=== PATIENT | male | born 1985 | race Caucasian/White ===

== ENCOUNTER 2017-06-26 17:26 | Emergency (ER) | payer OTHER ==
--- NOTE | 2017-06-26 18:20 | ED Physician Documentation ---
PD HPI URI - Stated complaint Stated Complaint: SORE THROAT/COUGH - Chief complaint Chief Complaint: Heent - History obtained from History obtained from: Patient - History of Present Illness Timing - onset: How many days ago (3) Timing duration: Days (3) Timing details: Gradual onset, Still present Associated symptoms: Fever, Chills, Sore throat, Swollen nodes, Dry cough Contributing factors: No: Sick contact, Travel Similar symptoms before: Has not had sx before Recently seen: Not recently seen Review of Systems Constitutional: reports: Fever, Chills, Myalgias Nose: reports: Rhinorrhea / runny nose, Congestion Throat: reports: Sore throat Respiratory: reports: Dyspnea, Cough GI: denies: Nausea, Vomiting, Diarrhea Skin: denies: Rash, Lesions PD PAST MEDICAL HISTORY - Past Medical History Cardiovascular: None Respiratory: None Neuro: None Endocrine/Autoimmune: None - Present Medications Home Medications: Ambulatory Orders Medication Instructions Recorded Confirmed Dexamethasone [Decadron] 4 mg PO DAILY #5 tablet 06/26/17 - Allergies Allergies/Adverse Reactions: Allergies Allergy/AdvReac Type Severity Reaction Status Date / Time No Known Drug Allergies Allergy Verified 06/26/17 17:42 PD ED PE NORMAL - Vitals Vital signs reviewed: Yes - General General: Alert and oriented X 3, No acute distress, Well developed/nourished - HEENT HEENT: Pharynx benign - Neck Neck: Supple, no meningeal sign, No adenopathy - Cardiac Cardiac: RRR, No murmur - Respiratory Respiratory: Clear bilaterally - Abdomen Abdomen: Soft, Non tender - Derm Derm: Normal color, Warm and dry Results - Vitals Vitals: Oxygen O2 Source Room air - Labs Labs: Microbiology 06/26/17 18:25 Group A Strep Throat Culture - Final Throat MIXED OROPHARYNGEAL DAMARIS PRESENT. NO BETA STREP PRESENT IN CULTURE. Laboratory Tests 06/26/17 18:25 Group A Strep Rapid Negative PD MEDICAL DECISION MAKING - ED course Complexity details: considered differential, d/w patient Departure - Departure Disposition: 01 Home, Self Care Clinical Impression: Upper respiratory infection Qualifiers: URI type: unspecified URI Qualified Code(s): J06.9 - Acute upper respiratory infection, unspecified Condition: Stable Record reviewed to determine appropriate education?: Yes Instructions: ED Upper Resp Infec No Abx Tx Follow-Up: ERICA Downey [Provider Group] Prescriptions: Dexamethasone [Decadron] 4 mg PO DAILY #5 tablet Comments: Drink lots of fluids. Tylenol or ibuprofen if needed for pains and fevers. Decadron daily for 5 more days for inflammation. I think this is a viral illness and will take 5 or 6 days for resolution. We did do a throat culture and we will call you if this has any bacterial growth and will result in 2 or 3 days. Follow-up with your primary care if not improved over the next several of days. Discharge Date/Time: 06/26/17 20:43
[2017-06-26] MEDS ORDERED: ACETAMINOPHEN 325 MG TABLET PO STA (19:10)
[2017-06-26] MEDS ORDERED: DEXAMETHASONE 10 MG/ML VIAL PO STA (19:10)
[2017-06-26 20:27] VITALS: BP 132/89
== END 2017-06-26 20:43 | disposition home or self-care (01) ==
LOC: ED 17:26
DX: J06.9 Acute upper respiratory infection, unspecified (principal)
CPT/HCPCS: 87070; 87430; 99283; A9270

== ENCOUNTER 2017-10-13 15:48 | Emergency (ER) | payer OTHER ==
[2017-10-13 16:00] VITALS: BP 126/78
--- NOTE | 2017-10-13 16:08 | ED Physician Documentation ---
History of Present Illness - Stated complaint Stated Complaint: RT EAR PX - Chief complaint Chief Complaint: Heent - History obtained from History obtained from: Patient - History of Present Illness Timing: How many weeks ago (1) Pain level max: 5 Pain level now: 2 Improved by: doxycycline Worsened by: palpation - Additonal information Additional information: R ear discomfort for the past week. States started doxycycline 3 days ago and feels like he is improving, but wants a recheck. No fevers. No vomiting. no drainage. no headache. Review of Systems Constitutional: denies: Fever, Chills Ears: denies: Drainage/discharge Nose: denies: Rhinorrhea / runny nose, Congestion Throat: denies: Sore throat Respiratory: denies: Cough GI: denies: Vomiting PD PAST MEDICAL HISTORY - Past Medical History Cardiovascular: None Respiratory: None Endocrine/Autoimmune: None - Past Surgical History Past Surgical History: No - Present Medications Home Medications: Ambulatory Orders Medication Instructions Recorded Confirmed Doxycycline Hyclate 10/13/17 - Allergies Allergies/Adverse Reactions: Allergies Allergy/AdvReac Type Severity Reaction Status Date / Time No Known Drug Allergies Allergy Verified 10/13/17 16:00 - Social History Does the pt smoke?: No Smoking Status: Never smoker - Immunizations Immunizations are current?: Yes PD ED PE NORMAL - Vitals Vital signs reviewed: Yes - General General: Alert and oriented X 3, No acute distress - HEENT HEENT: Ears normal, Moist mucous membranes, Pharynx benign, Other (normal R ear and pinna. no swelling. no erythema. no tenderness.) - Neck Neck: Supple, no meningeal sign, No adenopathy - Derm Derm: Warm and dry - Neuro Neuro: Alert and oriented X 3 Results - Vitals Vitals: Oxygen O2 Source Room air PD MEDICAL DECISION MAKING - ED course Complexity details: considered differential, d/w patient ED course: Patient is a 32-year-old male who apparently had cellulitis to the right ear a few days ago, this appears to be resolved at this time, will have him finish his current course of antibiotics. No evidence of chondritis. Patient is well- appearing, nontoxic. No lymphadenopathy. No mastoid tenderness. Patient counseled regarding signs and symptoms for which I believe and urgent re- evaluation would be necessary. Patient with good understanding of and agreement to plan and is comfortable going home at this time This document was made in part using voice recognition software. While efforts are made to proofread this document, sound alike and grammatical errors may occur. Departure - Departure Disposition: 01 Home, Self Care Clinical Impression: Cellulitis Qualifiers: Site of cellulitis: face Qualified Code(s): L03.211 - Cellulitis of face Condition: Good Instructions: ED Cellulitis Facial Follow-Up: JEREMI LEARY MD [Primary Care Provider] - Within 3 Days (for wound check) Comments: Continue your antibiotics at home. Return if you worsen. Discharge Date/Time: 10/13/17 16:26
== END 2017-10-13 16:26 | disposition home or self-care (01) ==
LOC: ED 15:48
DX: L03.211 Cellulitis of face (principal)
CPT/HCPCS: 99283

== ENCOUNTER 2017-10-23 09:43 | Emergency (ER) | payer OTHER ==
[2017-10-23 10:07] VITALS: BP 136/89
--- NOTE | 2017-10-23 10:44 | ED Physician Documentation ---
PD HPI UPPER EXT INJURY - Stated complaint Stated Complaint: FINGER LAC - Chief complaint Chief Complaint: Laceration - History obtained from History obtained from: Patient - History of Present Illness Location: Finger (left thumb) Type of injury: Laceration (from chisel blade that slipped off material) Where injury occurred: Home Timing - onset: Today Timing - details: Abrupt onset Worsened by: Palpating Associated symptoms: No: Weakness, Numbness Similar symptoms before: Has not had sx before Recently seen: Not recently seen Review of Systems Skin: reports: Laceration (s) Neurologic: denies: Focal weakness, Numbness PD PAST MEDICAL HISTORY - Past Medical History Past Medical History: No Cardiovascular: None Respiratory: None Endocrine/Autoimmune: None - Past Surgical History Past Surgical History: Yes - Present Medications Home Medications: Ambulatory Orders Medication Instructions Recorded Confirmed No Known Home Medications [No 10/23/17 10/23/17 Known Home Medications] - Allergies Allergies/Adverse Reactions: Allergies Allergy/AdvReac Type Severity Reaction Status Date / Time No Known Drug Allergies Allergy Verified 10/23/17 10:07 - Social History Does the pt smoke?: No Smoking Status: Never smoker Does the pt drink ETOH?: Yes ETOH Use: Beer Does the pt have substance abuse?: No - Immunizations Immunizations are current?: Yes - POLST Patient has POLST: No PD ED PE NORMAL - Vitals Vital signs reviewed: Yes - General General: Alert and oriented X 3, No acute distress, Well developed/nourished - Derm Derm: Normal color, Warm and dry - Extremities Extremities: Other (left thumb with crisp laceration at palmar distal phalanx. Does not cross joint. Does not open with movmement. No FB and no current bleeding. ) Results - Vitals Vitals: Vital Signs - 24 hr 10/23/17 10:05 Temperature 36.7 C Heart Rate 75 Respiratory 16 Rate Blood Pressure 136/89 H O2 Saturation 100 Oxygen O2 Source Room air Procedures - Laceration (location) left thumb Length in cm: 1.5 Wound type: Linear, Into subcut fat, Clean Neurovascular status: Sensory intact, Motor intact, Vascular intact Tendon involvement: No: Tendon Injury Wound Preparation: Wound explored. No: FB identified Skin layer closure: Dermabond, Steri strips Complexity: Simple PD MEDICAL DECISION MAKING - ED course Complexity details: considered differential (wound closes easily and does not cross joint, so I think is good with tape/glue.), d/w patient - Sepsis Event Vital Signs: Vital Signs - 24 hr 10/23/17 10:05 Temperature 36.7 C Heart Rate 75 Respiratory 16 Rate Blood Pressure 136/89 H O2 Saturation 100 Oxygen O2 Source Room air Departure - Departure Disposition: 01 Home, Self Care Clinical Impression: Laceration of left thumb Qualifiers: Encounter type: initial encounter Damage to nail status: without damage Foreign body presence: without foreign body Qualified Code(s): S61.012A - Laceration without foreign body of left thumb without damage to nail, initial encounter Condition: Stable Record reviewed to determine appropriate education?: Yes Instructions: ED Laceration Hand Follow-Up: JEREMI LEARY MD [Primary Care Provider] - Comments: Keep the area clean and dry. Allow the Steri-Strips to fall off on their own after several days. Tylenol or ibuprofen if needed for pains. Recheck if signs of infection. This should heal up over the next several days to week. Discharge Date/Time: 10/23/17 11:16
== END 2017-10-23 11:16 | disposition home or self-care (01) ==
LOC: ED 09:43
DX: S61.012A Laceration without foreign body of left thumb without damage to nail, initial encounter (principal); W27.8XXA Contact with other nonpowered hand tool, initial encounter; Y92.009 Unspecified place in unspecified non-institutional (private) residence as the place of occurrence of the external cause
CPT/HCPCS: 12001; 99282; 99283

== ENCOUNTER 2018-03-05 11:44 | Emergency (ER) | payer OTHER ==
[2018-03-05 12:17] LABS: BASOPHILS % (AUTO) 0.5 %; EOSINOPHILS # (AUTO) 0.1 10^3/uL (0.0-0.7); EOSINOPHILS % (AUTO) 2.7 %; HGB - HEMOGLOBIN 16.3 g/dL (14.0-18.0); LYMPHOCYTES # (AUTO) 1.1 10^3/uL (1.5-3.5); LYMPHOCYTES % (AUTO) 22.6 %; MEAN CORPUSCULAR HGB CONC 35.7 g/dL (32.0-36.0); MEAN CORPUSCULAR VOLUME 86.9 fL (80.0-94.0); MEAN PLATELET VOLUME 8.3 fL (7.4-11.4); MONOCYTES # (AUTO) 0.4 10^3/uL (0.0-1.0); NEUTROPHILS # (AUTO) 3.2 10^3/uL (1.5-6.6); NEUTROPHILS % (AUTO) 66.2 %; PLT - PLATELET COUNT 229 10^3/uL (130-450); RED BLOOD COUNT 5.26 10^6/uL (4.70-6.10); RED CELL DISTRIBUTION WIDTH 13.2 % (12.0-15.0); WHITE BLOOD COUNT 4.9 x10^3/uL (4.8-10.8)
--- NOTE | 2018-03-05 12:32 | ED Physician Documentation ---
PD HPI CHEST PAIN - Stated complaint Stated Complaint: DIZZY,ABN HEART BEAT - Chief complaint Chief Complaint: Cardiac - History obtained from History obtained from: Patient - History of Present Illness Timing - onset: How many days ago (3) Timing - onset during: Rest. No: Light activity Timing - duration: Days Timing - details: Intermittant (he has felt intermittent fast heart rate for few seconds and also feeling of skipped beats. Has had this at times in the past, but is feeling it more the past few days. had actually been cutting down on caffeine and "energy drinks" (a few daily). He has his PT test next week, so had cut down on harder exercise the past few days to have muscle healing time before his test. No recent illness. Denies cold meds, stimulants, regular alcohol, nor recent illness. He feels hydrated. No special dieting.) Quality: No: Pressure, Tightness Location: Substernal Radiation: No: Neck, Back Worsened by: Other (he has only noted the feeling at rest and in evening/trying to go to sleep. No exertional symptoms. He feels lightheaded faintly at times with it.). No: Exertion Associated symptoms: Feeling faint / dizzy (brief, for a second or so.), Palpitations. No: Shortness of air, Nausea, General Weakness Similar symptoms before: No diagnosis (benign palpitations - with normal ECG last year.) Recently seen: Emergency Dept (seen [place] [facility] a month ago for feeling of numbness in arms, mainly left, intermittently. Had chest xray and ECG/labs without signs of CAD, according to patient. No palpitations feeling at that time. He says the provider thought from muscular cause due to working out.) Review of Systems Constitutional: denies: Fever, Chills Nose: denies: Rhinorrhea / runny nose, Congestion Throat: denies: Sore throat Cardiac: reports: Palpitations. denies: Chest pain / pressure, Pedal edema, Calf pain Respiratory: denies: Cough GI: denies: Abdominal Pain, Nausea, Vomiting, Diarrhea, Bloody / black stool : denies: Dysuria, Frequency Skin: denies: Rash Neurologic: denies: Generalized weakness, Focal weakness, Numbness, Confused, Altered mental status, Headache Endocrine: denies: Weight loss, Weight gain, Easy bruising / bleeding, Swollen lymph nodes Immunocompromised: denies: Immunocompromised PD PAST MEDICAL HISTORY - Past Medical History Cardiovascular: None Respiratory: None Endocrine/Autoimmune: None - Past Surgical History Past Surgical History: Yes - Present Medications Home Medications: Ambulatory Orders Medication Instructions Recorded Confirmed No Known Home Medications 10/23/17 10/23/17 - Allergies Allergies/Adverse Reactions: Allergies Allergy/AdvReac Type Severity Reaction Status Date / Time No Known Drug Allergies Allergy Verified 03/05/18 11:59 - Social History Does the pt smoke?: No Smoking Status: Never smoker Does the pt drink ETOH?: Yes Does the pt have substance abuse?: No - Family History Family history: denies: CAD - Immunizations Immunizations are current?: Yes - POLST Patient has POLST: No PD ED PE NORMAL - Vitals Vital signs reviewed: Yes - General General: Alert and oriented X 3, No acute distress, Well developed/nourished - HEENT HEENT: Pharynx benign - Neck Neck: Supple, no meningeal sign, No adenopathy, Thyroid normal - Cardiac Cardiac: RRR, No murmur, No rub - Respiratory Respiratory: Clear bilaterally - Abdomen Abdomen: Soft, Non tender - Derm Derm: Normal color, Warm and dry - Extremities Extremities: No tenderness to palpate, Normal ROM s pain, No edema, No calf tenderness / cord - Neuro Neuro: Alert and oriented X 3, No motor deficit, Normal speech Results - Vitals Vitals: Vital Signs - 24 hr 03/05/18 03/05/18 11:54 14:14 Temperature 36.9 C 37 C Heart Rate 87 83 Respiratory 18 18 Rate Blood Pressure 131/65 H 125/97 H O2 Saturation 97 98 Oxygen O2 Source Room air - Labs Labs: Laboratory Tests 03/05/18 03/05/18 03/05/18 12:09 12:09 12:09 WBC 4.9 RBC 5.26 Hgb 16.3 Hct 45.7 MCV 86.9 MCH 31.0 MCHC 35.7 RDW 13.2 Plt Count 229 MPV 8.3 Neut # (Auto) 3.2 Lymph # (Auto) 1.1 L Titus # (Auto) 0.4 Eos # (Auto) 0.1 Baso # (Auto) 0.0 Absolute Nucleated RBC 0.00 Nucleated RBC % 0.1 Sodium 138 Potassium 3.9 Chloride 99 L Carbon Dioxide 31 Anion Gap 8.0 BUN 14 Creatinine 1.0 Estimated GFR (MDRD) 86 L Glucose 114 H Calcium 9.4 Magnesium Total Bilirubin 0.9 AST 23 ALT 26 Alkaline Phosphatase 45 Troponin I < 0.04 Total Protein 7.6 Albumin 4.6 Globulin 3.0 Albumin/Globulin Ratio 1.5 Lipase 23 TSH Urine Opiates Screen Ur Oxycodone Screen Urine Methadone Screen Ur Propoxyphene Screen Ur Barbiturates Screen Ur Tricyclics Screen Ur Phencyclidine Scrn Ur Amphetamine Screen U Methamphetamines Scrn U Benzodiazepines Scrn Urine Cocaine Screen U Cannabinoids Screen 03/05/18 03/05/18 03/05/18 12:14 12:14 13:30 WBC RBC Hgb Hct MCV MCH MCHC RDW Plt Count MPV Neut # (Auto) Lymph # (Auto) Titus # (Auto) Eos # (Auto) Baso # (Auto) Absolute Nucleated RBC Nucleated RBC % Sodium Potassium Chloride Carbon Dioxide Anion Gap BUN Creatinine Estimated GFR (MDRD) Glucose Calcium Magnesium 2.2 Total Bilirubin AST ALT Alkaline Phosphatase Troponin I Total Protein Albumin Globulin Albumin/Globulin Ratio Lipase TSH 2.52 Urine Opiates Screen NEGATIVE Ur Oxycodone Screen NEGATIVE Urine Methadone Screen NEGATIVE Ur Propoxyphene Screen NEGATIVE Ur Barbiturates Screen NEGATIVE Ur Tricyclics Screen NEGATIVE Ur Phencyclidine Scrn NEGATIVE Ur Amphetamine Screen NEGATIVE U Methamphetamines Scrn NEGATIVE U Benzodiazepines Scrn NEGATIVE Urine Cocaine Screen NEGATIVE U Cannabinoids Screen NEGATIVE Departure - Departure Disposition: 01 Home, Self Care Clinical Impression: Palpitations Condition: Stable Record reviewed to determine appropriate education?: Yes Instructions: ED Palpitations Follow-Up: ERICA Downey [Provider Group] Comments: Your blood tests as well as thyroid screen EKG chest x-ray and echocardiogram are normal. I presume this is just an electrical glitch with some palpitations and intermittent fast heart rate. Drink lots of fluids. Continue to avoid the caffeine. Regular exercise is okay. Follow-up with your primary care if persisting. If you do have persistent symptoms that could potentially have you wear a heart monitor that just record your heart rate over several days to week to better delineate what the irregularity is. At this point it does not appear to be anything serious. Discharge Date/Time: 03/05/18 14:15
--- NOTE | 2018-03-05 12:39 | XRAY Report ---
Reason: heart palpations Procedure Date: 03/05/2018 Accession Number: [id number] / [id number] Procedure: XR - Chest 2 View X-Ray CPT Code: 65392 FULL RESULT: EXAM: CHEST RADIOGRAPHY EXAM DATE: 03/05/2018 12:29 PM. CLINICAL HISTORY: Heart palpations. COMPARISON: None. TECHNIQUE: 2 views. FINDINGS: Lungs/Pleura: No focal opacities evident. No pleural effusion. No pneumothorax. Normal volumes. Mediastinum: Heart and mediastinal contours are unremarkable. Other: None. IMPRESSION: Normal 2-view chest radiography. RADIA
[2018-03-05 12:59] LABS: ALBUMIN 4.6 g/dL (3.2-5.5); ALBUMIN/GLOBULIN RATIO 1.5 (1.0-2.2); BILIRUBIN,TOTAL 0.9 mg/dL (0.2-1.0); CALCIUM 9.4 mg/dL (8.5-10.3); TOTAL PROTEIN 7.6 g/dL (6.7-8.2)
[2018-03-05 13:39] LABS: MUDS CUTOFF CONCENTRATIONS CUTOFF CONC BELOW:
[2018-03-05 13:51] LABS: AMPHETAMINE SCREEN,URINE NEGATIVE (NEGATIVE); BENZODIAZEPINES SCREEN, URINE NEGATIVE (NEGATIVE); COCAINE SCREEN URINE NEGATIVE (NEGATIVE); METHADONE SCREEN, URINE NEGATIVE (NEGATIVE); METHAMPHETAMINES SCREEN, URINE NEGATIVE (NEGATIVE); OPIATE SCREEN, URINE NEGATIVE (NEGATIVE); OXYCODONE SCREEN, URINE NEGATIVE (NEGATIVE); PROPOXYPHENE SCREEN, URINE NEGATIVE (NEGATIVE); TRICYCLIC ANTIDEPRESSANT,URINE NEGATIVE (NEGATIVE)
[2018-03-05 14:15] VITALS: BP 125/97
== END 2018-03-05 14:15 | disposition home or self-care (01) ==
LOC: ED 11:44
DX: R00.2 Palpitations (principal)
CPT/HCPCS: 36415; 71046; 80053; 80306; 83690; 83735; 84443; 84484; 85025; 93005; 93308; 99283; 99284

== ENCOUNTER 2020-01-10 11:49 | Emergency (ER) | payer OTHER ==
[2020-01-10 12:05] VITALS: BP 127/75
[2020-01-10] MEDS ORDERED: LIDOCAINE 1% 2 ML VIAL SUBQ STA (12:18)
--- NOTE | 2020-01-10 12:22 | ED Physician Documentation ---
PD HPI LOWER EXT INJURY - Stated complaint Stated Complaint: L FOOT TOE PX - Chief complaint Chief Complaint: Ext Problem - History obtained from History obtained from: Patient - Additional information Additional information: 1 week painful R great ingrown toenail. Some drainage. No pain at rest. Review of Systems Constitutional: reports: Reviewed and negative Ears: reports: Reviewed and negative Nose: reports: Reviewed and negative Throat: reports: Reviewed and negative PD PAST MEDICAL HISTORY - Past Medical History Cardiovascular: None Respiratory: None Endocrine/Autoimmune: None - Past Surgical History Past Surgical History: Yes - Present Medications Home Medications: Ambulatory Orders Medication Instructions Recorded Confirmed Cephalexin [Keflex] 500 mg PO Q6H #28 capsule 01/10/20 - Allergies Allergies/Adverse Reactions: Allergies Allergy/AdvReac Type Severity Reaction Status Date / Time No Known Drug Allergies Allergy Verified 03/05/18 11:59 - Social History Does the pt smoke?: No Smoking Status: Never smoker Does the pt drink ETOH?: Yes Does the pt have substance abuse?: No - Immunizations Immunizations are current?: Yes - POLST Patient has POLST: No PD ED PE NORMAL - Vitals Vital signs reviewed: Yes - General General: Alert and oriented X 3, No acute distress - Extremities Extremities: Other (The lateral side of the right great toenail is ingrown with mild cellulitis and drainage) - Neuro Neuro: Alert and oriented X 3, Normal speech Results - Vitals Vitals: Vital Signs - 24 hr 01/10/20 12:00 Temperature 37.3 C Heart Rate 71 Respiratory 18 Rate Blood Pressure 127/75 O2 Saturation 98 Oxygen O2 Source Room air Procedures - General procedure General procedure: A digital block was done with lidocaine of the right great toe in standard fashion and then the lateral eighth of the toenail was cut longitudinally and removed without issue. The patient tolerated this well. Departure - Departure Disposition: 01 Home, Self Care Clinical Impression: Ingrown toenail of right foot with infection Condition: Good Record reviewed to determine appropriate education?: Yes Instructions: ED Ingrown Toenail Excised Prescriptions: Cephalexin [Keflex] 500 mg PO Q6H #28 capsule
== END 2020-01-10 12:48 | disposition home or self-care (01) ==
LOC: ED 11:49
DX: L60.0 Ingrowing nail (principal); L03.031 Cellulitis of right toe
CPT/HCPCS: 11765; 99283

== ENCOUNTER 2020-03-22 07:34 | Outpatient (CLI) | payer OTHER ==
--- NOTE | 2020-03-22 10:52 | CARDIAC PROCEDURE NOTE ---
DATE OF SERVICE: 03/22/2020 Physician: Cher Fonseca MD, [facility] INDICATION: Palpitations. CARDIAC RISK FACTORS: Male gender. DESCRIPTION OF PROCEDURE: After signing informed consent, the patient underwent a Jim-protocol treadmill stress test. There was no cardiac imaging ordered with this test. RESTING HEART RATE: 64. PEAK HEART RATE: 160. RESTING BLOOD PRESSURE: 123/78. PEAK BLOOD PRESSURE: 190/82. The patient exercised for 13 minutes and 42 seconds on a Jim-protocol treadmill stress test. He achieved a peak heart rate of 160 (89% predicted maximum heart rate for age) and 14.6 METs. The patient had mild shortness of breath at peak, no chest pain, and no description of palpitations during exercise. Oxygen saturation was 96%-99% on room air throughout the test. In recovery, the patient was laid down on the gurney to try to reproduce his palpitation symptoms (which occur when he lies down). He had no "palpitations." RESTING EKG: Normal sinus rhythm, vertical axis, IVCD. EKG AT PEAK: No new ST-segment or T-wave changes. During the test, there were 4 total unifocal PVCs seen, that were asymptomatic. SUMMARY 1. Very good exercise capacity. 2. No symptoms of palpitations developed during treadmill exercise. 3. No ischemic changes seen on EKG. IMPRESSION 1. Normal stress test. cc: Nain Merino MD TD: 03/22/2020 09:29 MTDD
== END 2020-03-22 07:35 | disposition home or self-care (01) ==
LOC: DI 07:34
DX: R00.2 Palpitations (principal)
CPT/HCPCS: 93016; 93017; 93018

== ENCOUNTER 2021-10-25 09:56 | Outpatient (CLI) | payer OTHER ==
--- NOTE | 2021-10-29 17:05 | MRI Report ---
PROCEDURE: Brain W/O INDICATIONS: CRANIAL NERVE DISORDER TECHNIQUE: Noncontrast axial T1 spin echo, axial T2 fast spin echo, sagittal and axial FLAIR, coronal T2 fast sp in echo, axial gradient echo, axial diffusion and ADC through the brain. COMPARISON: None. FINDINGS: Image quality: Excellent. CSF Spaces: Basal cisterns are patent. No extra-axial fluid collections. Ventricles are normal in size and shape. Brain: No intracranial masses or hemorrhage. Tolbert/white matter interface is normal. Brainstem appe ars normal. Diffusion-weighted images demonstrate no acute ischemic insult. No chronic ischemic ins ults. Normal intravascular flow voids are present. Visualized cranial nerves are grossly unremarkab le. Cerebellopontine angles are grossly unremarkable. Skull and face: Calvarium has normal marrow signal. Orbits appear normal. Sinuses: Sinuses and mastoids are clear. IMPRESSION: 1. Gross visualization of the cranial vertex without contrast demonstrates no areas of abnormal enhan cement, mass lesion or abnormal signal. Reviewed by: Nery Lagos MD on 10/29/2021 5:04 PM PDT Approved by: Nery Lagos MD on 10/29/2021 5:04 PM PDT Station ID: [id number]
== END 2021-10-25 09:57 | disposition home or self-care (01) ==
LOC: DI 09:56
DX: G52.9 Cranial nerve disorder, unspecified (principal); G51.0 Bell's palsy